=== PATIENT | male | born 1940 | race Two or more races ===

== ENCOUNTER 2017-03-09 12:07 | Inpatient (IN) | payer OTHER ==
[~2017-03-09] VITALS: Ht 147.3 cm; Wt 62.8 kg
[~2017-03-09 12:07] MED LIST: ALEN70TA2 PO; ATOR20TA50 PO; LOSA50TA6 PO
[2017-03-09] MEDS ORDERED: ceFOXitin 2GM/100ML D5W 100 ML IV ONE (12:38)
[2017-03-09] MEDS ORDERED: LIDOCAINE W/ EPINEPHRINE 1 % INJ 30ML ONE (13:28)
[2017-03-09] MEDS ORDERED: LIDOCAINE HCL (LOCAL ANESTH.) 0.5 % 50ML MDV IJ ONE (13:28)
[2017-03-09] MEDS ORDERED: BUPIVACAINE 0.25% INJ 50ML VIAL ONE (13:29)
[2017-03-09] MEDS ORDERED: ROCURONIUM 10MG/ML 10ML VIAL IV ONE (13:52)
[2017-03-09] MEDS ORDERED: fentaNYL CITRATE 5 ML ONE (13:52)
[2017-03-09] MEDS ORDERED: PHENYLEPHRINE HCL 10 MG/ML VL IV ONE (13:55)
[2017-03-09] MEDS ORDERED: ePHEDrine SULFATE 50 MG/ML AMP ONE (14:45)
[2017-03-09] MEDS ORDERED: METOCLOPRAMIDE HCL 5MG/ml INJ 2ml VIAL ONE (14:45)
[2017-03-09] MEDS ORDERED: DEXAMETHASONE SOD PHOS 10MG/1ML VIAL INJ ONE (14:45)
[2017-03-09] MEDS ORDERED: ONDANSETRON HCL 4 MG/2 ML VIAL ONE (14:45)
[2017-03-09] MEDS ORDERED: PROPOFOL 10 MG/ML 20 ML IV ONE (14:45)
[2017-03-09] MEDS ORDERED: SODIUM CHLORIDE LOCK 30 ML ONE (14:45)
[2017-03-09] MEDS ORDERED: fentaNYL CITRATE 100 MCG/2 ML VL ONE ×2 (15:12→15:41)
[2017-03-09] MEDS ORDERED: GLYCOPYRROLATE 0.2 MG/ML 1ML VIAL ONE ×2 (15:42→16:20)
[2017-03-09] MEDS ORDERED: METOPROLOL TARTRATE 1MG/1ML-5ML VIAL IV ONE (15:42)
[2017-03-09] MEDS ORDERED: NEOSTIGMINE 1 MG/ML INJ (10mg/10ML VIAL) ONE ×2 (15:42→16:54)
[2017-03-09] MEDS ORDERED: HYDROmorphone HCL 2 MG/ML VL IV PRN (16:30)
[2017-03-09] MEDS ORDERED: ONDANSETRON HCL 4 MG/2 ML VIAL IV PRN (16:30)
[2017-03-09] MEDS ORDERED: diphenhdrAMINE HCL 50 MG/1 ML VL IV PRN (16:30)
[2017-03-09] MEDS ORDERED: ACETAMINOPHEN/CODEINE#3 (300/30mg) TAB PO PRN (16:30)
[2017-03-09] MEDS ORDERED: LOSARTAN POTASSIUM 50 MG TAB PO SCH (16:31)
[2017-03-09 17:46] VITALS: BP 193/89
[2017-03-09] MEDS ORDERED: LABETALOL HCL 5 MG/ML 4ML SYRINGE IV ONE (17:52)
[2017-03-09] MEDS ORDERED: HYDROmorphone HCL 2 MG/ML VL IV ONE (18:00)
[2017-03-09] MEDS ORDERED: ONDANSETRON HCL 4 MG/2 ML VIAL IV ONE (18:00)
[2017-03-09] MEDS ORDERED: LABETALOL HCL 5 MG/ML 4ML SYRINGE IV PRN (18:00)
[2017-03-09] MEDS ORDERED: hydrALAZINE HCL 20 MG/ML VL IV PRN (18:00)
[2017-03-09] MEDS ORDERED: NALOXONE HCL 0.4 MG/ML VIAL IV PRN (18:00)
[2017-03-09 18:05] VITALS: BP 149/74
[2017-03-09 18:45] VITALS: BP 149/68
[2017-03-09 19:05] LABS: BUN/Creatinine Ratio 13.8; Calcium 7.6 mg/dL (8.5-10.1); Potassium 3.9 mmol/L (3.5-5.1)
[2017-03-09 19:30] VITALS: BP 136/65
[2017-03-09 20:43] VITALS: BP 163/77
[2017-03-09 22:00] VITALS: BP 136/65
[2017-03-09] MEDS ORDERED: ATORVASTATIN 20 MG TAB PO SCH (22:00)
[2017-03-10] MEDS: CEFOXITIN SODIUM 1 GM in D5W 5% 50 ML IV SCH ×2 (00:55→08:30)
[2017-03-10] MEDS: D5W/SOD CHL 0.45% 1,000 ML IV SCH ×4 (00:58→16:22)
[2017-03-10 05:00] VITALS: BP 115/70
[2017-03-10 08:00] VITALS: BP 119/67
[2017-03-10 09:21] VITALS: BP 119/67
[2017-03-10 12:00] VITALS: BP 121/62
[2017-03-10 16:58] VITALS: BP 151/71
== END 2017-03-10 17:45 | disposition left against medical advice (07) | DRG 708 ==
LOC: SUR 12:07 → CENTRAL 12:08
PROVIDERS: ADMIT Urology; ATTEND Urology
PROC: 07BJ4ZZ Excision of Left Inguinal Lymphatic, Percutaneous Endoscopic Approach (ICD-10-PCS; 2017-03-09)
PROC: 07BH4ZZ Excision of Right Inguinal Lymphatic, Percutaneous Endoscopic Approach (ICD-10-PCS; 2017-03-09)
PROC: 8E0W4CZ Robotic Assisted Procedure of Trunk Region, Percutaneous Endoscopic Approach (ICD-10-PCS; 2017-03-09)
PROC: 0VT04ZZ Resection of Prostate, Percutaneous Endoscopic Approach (ICD-10-PCS; principal; 2017-03-09 13:55)
DX: C61 Malignant neoplasm of prostate (principal)
CPT/HCPCS: 36415; 80048; 86850; 86900; 86901; 94660; J0694; J1100; J2405; J2704; J3490; J7060